=== PATIENT | male | born 1955 | race Caucasian/White ===

== ENCOUNTER 2017-08-18 18:22 | Emergency (ER) | payer SELFPAY ==
[2017-08-18] MEDS: LIDOCAINE 1% (MDV) 10 ML INJ INFIL (19:53)
== END 2017-08-18 22:03 | disposition home or self-care (01) ==
LOC: FTE 18:22
DX: S61.012A Laceration without foreign body of left thumb without damage to nail, initial encounter (principal); E11.9 Type 2 diabetes mellitus without complications; F17.210 Nicotine dependence, cigarettes, uncomplicated; X83.8XXA Intentional self-harm by other specified means, initial encounter; Y92.9 Unspecified place or not applicable
CPT/HCPCS: 12001; 73140; 99284-25

== ENCOUNTER 2017-08-20 13:54 | Emergency (ER) | payer MEDICAID | END 2017-08-20 14:12 | disposition home or self-care (01) | LOC: E/R 13:54 | DX: Z48.01 Encounter for change or removal of surgical wound dressing (principal); E11.9 Type 2 diabetes mellitus without complications | CPT/HCPCS: 99281; Z7502 ==

== ENCOUNTER 2017-08-28 10:24 | Emergency (ER) | payer MEDICAID | END 2017-08-28 10:46 | disposition home or self-care (01) | LOC: E/R 10:24 | DX: Z48.02 Encounter for removal of sutures (principal); E11.9 Type 2 diabetes mellitus without complications | CPT/HCPCS: 99281; Z7502 ==